=== PATIENT | female | born 1990 | race African-American/Black ===

== ENCOUNTER 2021-08-12 01:11 | Inpatient (IN) ==
[2021-08-12] MEDS ORDERED: LACTATED RINGERS 1,000 ML IV ONE (02:00)
[2021-08-12] MEDS ORDERED: TERBUTALINE 1 MG/1 ML VIAL ONE (02:06)
[2021-08-12] MEDS ORDERED: TERBUTALINE 1 MG/1 ML VIAL SUBCUT PRN (02:09)
[2021-08-12 02:20] LABS: Bilirubin,Urine Negative (Negative); Blood, Urine Negative (Negative); Glucose,Urine (UA) Negative (Negative); Ketones,Urine Negative (Negative); Mucus,Urine Occasional /LPF (Occasional); Nitrite,Urine Negative (Negative); Protein,Urine Negative; RBC,Urine 5 /HPF (0-4); Squamous Epithelial Cell,Urine Occasional /HPF (0-10); Urine Appearance CLEAR (Clear); Urine Color Straw (Yellow); Urine Specific Gravity 1.008 (1.001-1.035); Urine Urobilinogen < 2.0 EU/DL (0.2-1.0)
[2021-08-12] MEDS ORDERED: MEPERIDINE 50 MG/1 ML VIAL IV ONE (03:33)
[2021-08-12] MEDS ORDERED: ONDANSETRON 4 MG/2 ML VIAL IV ONE (03:34)
[2021-08-12] MEDS: LACTATED RINGERS 1,000 ML IV SCH ×2 (03:42→21:18)
[2021-08-12] MEDS ORDERED: AMPICILLIN INJ 2,000 MG in SODIUM CHLORIDE 0.9% 100 ML IV ONE (08:50)
[2021-08-12] MEDS ORDERED: MEPERIDINE 25 MG/1 ML VIAL IV PRN (08:56)
[2021-08-12] MEDS ORDERED: ONDANSETRON 4 MG/2 ML VIAL IV PRN (08:56)
[2021-08-12 09:13] LABS: Basophils % 0.2 % (0.0-0.8); Eosinophils # 0.1 10*3/uL (0.0-0.87); Eosinophils % 1.1 % (0.00-10.9); Hematocrit 33.5 VOL% (35.7-47.0); Hemoglobin 11.4 GM/DL (12.0-16.0); Immature Granulocytes % 0.8 %; Lymphocytes # 1.3 10*3/uL (1.4-4.0); Lymphocytes % 11.2 % (21.3-54.2); Mean Corpuscular Volume 97.4 FL (87-102); Mean Platelet Volume 9.1 FL (9.6-12.0); Monocytes % 6.9 % (1.7-12.7); Neutrophils % 79.8 % (38.7-73.9); Platelet Count 240 T/CUMM (130-400); Red Blood Count 3.44 MC/CUMM (3.8-5.5); Red Cell Distribution Width 13.5 % (9.3-17.3); White Blood Count 11.8 T/CUMM (4-12)
[2021-08-12] MEDS: AMPICILLIN INJ 1,000 MG in SODIUM CHLORIDE 0.9% 100 ML IV SCH ×3 (13:26→21:17)
[2021-08-12] MEDS ORDERED: BETAMETH SODIUM PHOS/ACETATE 30 MG/5 ML VIAL IM SCH (17:00)
[2021-08-13] MEDS ORDERED: OXYTOCIN/LR 20 UNIT/1,000 ML BAG IV SCH (01:00)
[2021-08-13] MEDS: MEPERIDINE 50 MG/1 ML VIAL IV PRN ×3 (01:06→04:59)
[2021-08-13] MEDS: AMPICILLIN INJ 1,000 MG in SODIUM CHLORIDE 0.9% 100 ML IV SCH (01:06)
[2021-08-13] MEDS ORDERED: SODIUM CHLORIDE 0.9% 1,000 ML IV ONE (04:43)
[2021-08-13] MEDS ORDERED: LIDOCAINE 1% 50 ML VIAL ONE (05:00)
[2021-08-13] MEDS ORDERED: OXYTOCIN/LR 30 UNIT/1,000 ML BAG IV ONE (05:03)
[2021-08-13] MEDS ORDERED: BENZOCAINE 20%/MENTHOL 0.5% SPRAY 56 GM CAN TOP PRN (05:08)
[2021-08-13] MEDS ORDERED: MEASLES/MUMPS/RUBELLA VACCINE 0.5 ML VIAL SUBCUT ONE (05:08)
[2021-08-13] MEDS ORDERED: oxyCODONE/ACETAMINOPHEN 5-325 MG TABLET PO PRN ×2 (05:08)
[2021-08-13] MEDS ORDERED: OXYTOCIN/LR 20 UNIT/1,000 ML BAG IV ONE (05:08)
[2021-08-13] MEDS ORDERED: DIPH/TET/ACEL PERT BOOSTER VACCINE 0.5 ML VIAL IM ONE (05:08)
[2021-08-13] MEDS ORDERED: ONDANSETRON 4 MG/2 ML VIAL IV PRN (05:08)
[2021-08-13] MEDS ORDERED: RHO(D) IMMUNE GLOBULIN 300 MCG SYRINGE IM ONE (05:08)
[2021-08-13] MEDS ORDERED: ACETAMINOPHEN 325 MG TABLET PO PRN (05:08)
[2021-08-13] MEDS ORDERED: LANOLIN 50% CREAM 0.3 OZ TUBE TOP PRN (05:08)
[2021-08-13] MEDS ORDERED: BISACODYL 10 MG SUPP RECTAL PRN (05:08)
[2021-08-13] MEDS ORDERED: HYDROCORTISONE 2.5% RECTAL CREAM 30 GM TUBE TOP PRN (05:08)
[2021-08-13] MEDS ORDERED: WITCH HAZEL PADS 100/JAR TOP PRN (05:08)
[2021-08-13 05:14] LABS: Cord Arterial Blood HCO3 21.9 MMOL/L
[2021-08-13 05:17] LABS: Cord Venous Blood HCO3 22.3 MMOL/L; Cord Venous Blood PCO2 38.1 MMHG; Cord Venous Blood PO2 23.6
[2021-08-13] MEDS: DOCUSATE SODIUM 100 MG CAPSULE PO SCH ×2 (08:54→22:04)
[2021-08-13] MEDS: IBUPROFEN 800 MG TABLET PO PRN ×2 (12:20→22:06)
[2021-08-13 13:06] LABS: Basophils % 0.1 % (0.0-0.8); Eosinophils % 0.1 % (0.00-10.9); Hematocrit 31.8 VOL% (35.7-47.0); Hemoglobin 11.1 GM/DL (12.0-16.0); Immature Granulocytes % 0.7 %; Immature Granulocytes Absolute 0.14 #; Lymphocytes # 1.7 10*3/uL (1.4-4.0); Mean Corpuscular HGB Conc 34.9 GM/DL (32-36); Mean Corpuscular Volume 96.7 FL (87-102); Mean Platelet Volume 9.8 FL (9.6-12.0); Monocytes % 8.2 % (1.7-12.7); Neutrophils % 82.9 % (38.7-73.9); Platelet Count 197 T/CUMM (130-400); Red Blood Count 3.29 MC/CUMM (3.8-5.5); Red Cell Distribution Width 13.2 % (9.3-17.3); White Blood Count 20.6 T/CUMM (4-12)
[2021-08-13 14:28] LABS: Lymphocytes 7 % (20-55); Platelet Estimate Adequate; Segmented Neutrophils 86 % (50-85); Total Cells Counted 100
[2021-08-13 14:29] LABS: Polychromasia Slight
[2021-08-14 05:05] LABS: Basophils % 0.2 % (0.0-0.8); Eosinophils # 0.1 10*3/uL (0.0-0.87); Eosinophils % 0.6 % (0.00-10.9); Hematocrit 30.9 VOL% (35.7-47.0); Hemoglobin 10.5 GM/DL (12.0-16.0); Immature Granulocytes % 0.5 %; Immature Granulocytes Absolute 0.07 #; Lymphocytes # 2.4 10*3/uL (1.4-4.0); Lymphocytes % 17.8 % (21.3-54.2); Mean Platelet Volume 9.5 FL (9.6-12.0); Monocytes % 6.2 % (1.7-12.7); Neutrophils % 74.7 % (38.7-73.9); Platelet Count 200 T/CUMM (130-400); Red Blood Count 3.22 MC/CUMM (3.8-5.5); Red Cell Distribution Width 13.3 % (9.3-17.3); White Blood Count 13.6 T/CUMM (4-12)
[2021-08-14] MEDS: DOCUSATE SODIUM 100 MG CAPSULE PO SCH ×2 (08:21→21:38)
[2021-08-14] MEDS: IBUPROFEN 800 MG TABLET PO PRN ×2 (08:22→18:04)
[2021-08-15] MEDS: IBUPROFEN 800 MG TABLET PO PRN ×2 (00:17→08:41)
[2021-08-15 08:23] VITALS: BP 100/60
[2021-08-15] MEDS: DOCUSATE SODIUM 100 MG CAPSULE PO SCH (08:25)
== END 2021-08-15 13:55 | disposition home or self-care (01) | DRG 807 ==
LOC: N.LD 01:11 → N.OB 08-13 07:45
PROVIDERS: ADMIT Obstetrics & Gynecology; ATTEND Obstetrics & Gynecology